=== PATIENT | male | born 1995 | race Hispanic/Latino ===

== ENCOUNTER 2018-12-08 15:39 | Emergency (ER) | payer OTHER ==
[2018-12-08] MEDS ORDERED: FLUORESCEIN SODIUM 0.6 MG/WRAP ONE (17:19)
[2018-12-08] MEDS ORDERED: TETRACAINE HCL 0.5% 2ML OPTH ONE (17:26)
[2018-12-08] MEDS ORDERED: VALACYCLOVIR 500 MG TAB ONE (17:27)
--- NOTE | 2018-12-08 17:30 | EDPHYS ---
Physician Documentation [facility] Name: J Carlos Mejias Jr Age: 23 yrs Sex: Male : 1995 Arrival Date: 12/08/2018 Time: 15:43 Bed 19 Private MD: None, None ED Physician Jaspreet Hirsch HPI: 12/08 16:56 This 23 yrs old Male presents to ER via Ambulatory with complaints of Facial jmm Swelling. 16:56 The patient's rash thought to be caused by an unknown cause. The rash is located on the jmm right cheek. Onset: The symptoms/episode began/occurred today. Associated signs and symptoms: Pertinent positives: itching, Pertinent negatives: fever, Pain. The patient has experienced a previous episode. This is a 23 year old male with no chronic medical conditions that presents to the ED with a rash to his right cheek. Patient denies pain. Denies changes in vision or ocular pain. Historical: - Allergies: 15:51 No Known Allergies; sv - PMHx: 15:51 None; sv - PSHx: 15:51 None; sv - Immunization history:: Adult Immunizations up to date. - Social history:: Smoking status: Patient uses tobacco products, smokes one-half pack cigarettes per day. - Ebola Screening: : No symptoms or risks identified at this time. ROS: 16:56 Constitutional: Negative for fever, chills, and weight loss, Eyes: Negative for injury, jmm pain, redness, and discharge, Cardiovascular: Negative for chest pain, palpitations, and edema, Respiratory: Negative for shortness of breath, cough, wheezing, and pleuritic chest pain. 16:56 Skin: Positive for rash. 16:56 All other systems are negative. Exam: 16:56 Eyes: EOMI, no conjunctival erythema appreciated ENT: Moist Mucus Membranes Neck: jmm Trachea midline, Supple Chest/axilla: Normal chest wall appearance and motion. Cardiovascular: Regular rate and rhythm. No edema appreciated Respiratory: Normal respirations, no respiratory distress appreciated Abdomen/GI: Non distended, soft Back: Normal ROM 16:56 Constitutional: The patient appears in no acute distress, alert, awake. 16:56 Head/face: vesicular rash noted to the right cheek below the right lower eyelid. No surrounding erythema is appreciated. . 16:56 Skin: vesicular rash noted to the right cheek. 16:56 Neuro: Orientation: is normal, Mentation: is normal, Memory: is normal, Gait: is steady. 16:56 Psych: Behavior/mood is pleasant, cooperative. Vital Signs: 15:51 BP 157 / 82; Pulse 81; Resp 16; Temp 98.5; Pulse Ox 98% ; Weight 90.72 kg; Height 5 ft. sv 5 in. (165.10 cm); Pain 5/10; 15:51 Body Mass Index 33.28 (90.72 kg, 165.10 cm) sv MDM: 16:56 Patient medically screened. [facility] 17:27 Data reviewed: vital signs, nurses notes. Counseling: I had a detailed discussion with [facility] the patient and/or guardian regarding: the historical points, exam findings, and any diagnostic results supporting the discharge/admit diagnosis, the need for outpatient follow up, to return to the emergency department if symptoms worsen or persist or if there are any questions or concerns that arise at home. ED course: Patient was initially administered Valtrex for concerns for herpetic infection. Patient will be prescribed antiviral eye drops due to location of rash and advised to closely follow up with ophthalmology. Patient given strict return precautions for pain or changes in the vision. Patient understood and agrees with the plan of care. . 12/08 17:02 Order name: Eye Tray; Complete Time: 17:14 [facility] 12/08 17:02 Order name: Fluoresene Opth strip; Complete Time: 17:14 [facility] Administered Medications: 17:21 Drug: Valtrex 1000 mg Route: PO; em 17:39 Follow up: Response: No adverse reaction em 17:24 Not Given (Physician Discretion): Tetracaine Drops 0.5 % 1 drops Ophthalmic once em Disposition: 17:48 Co-signature as Attending Physician, Jaspreet Hirsch MD. rn Disposition: 12/08/18 17:29 Discharged to Home. Impression: Herpesviral [herpes simplex] infections. - Condition is Stable. - Discharge Instructions: Herpes Keratitis. - Prescriptions for Viroptic 1 % Ophthalmic drops - instill 1 drop by OPHTHALMIC route every 4 hours for a minimum daily dosage of 5 drops following re-epithelialization for an additional 7 days; 1 bottle. Valtrex 1 g Oral Tablet - take 1 tablet by ORAL route every 8 hours for 7 days; 24 tablet. - Medication Reconciliation Form, Thank You Letter, Antibiotic Education, Prescription Opioid Use form. - Follow up: Mendez Brady MD; When: As needed; Reason: Recheck today's complaints, Continuance of care, Re-evaluation by your physician. Follow up: Delfin Brady MD; When: As needed; Reason: Recheck today's complaints, Continuance of care, Re-evaluation by your physician. Follow up: Elida Lindsey MD; When: 2 - 3 days; Reason: Recheck today's complaints, Continuance of care, Re-evaluation by your physician. Signatures: Ama Shaffer, RN RN Ángel De La Garza PA PA [facility] Osmar Reyez, ROLLING MACHINE OPERATOR AUTOMATIC ROLLING MACHINE OPERATOR AUTOMATIC em Jaspreet Hirsch MD MD rn stars: (The following items were deleted from the chart) 17:43 17:29 12/08/2018 17:29 Discharged to Home. Impression: Herpesviral [herpes simplex] em infections. Condition is Stable. Forms are Medication Reconciliation Form, Thank You Letter, Antibiotic Education, Prescription Opioid Use. Follow up: Mendez Brady; When: As needed; Reason: Recheck today's complaints, Continuance of care, Re-evaluation by your physician. Follow up: Delfin Brady; When: As needed; Reason: Recheck today's complaints, Continuance of care, Re-evaluation by your physician. Follow up: Elida Lindsey; When: 2 - 3 days; Reason: Recheck today's complaints, Continuance of care, Re-evaluation by your physician. [facility]
--- NOTE | 2018-12-08 17:30 | ER ---
Nurse's Notes [facility] Name: J Carlos Mejias Jr Age: 23 yrs Sex: Male : 1995 Arrival Date: 12/08/2018 Time: 15:43 Bed 19 Private MD: None, None Diagnosis: Herpesviral [herpes simplex] infections Presentation: 12/08 15:50 Presenting complaint: Patient states: right side facial swelling x 1 day. Transition of sv care: patient was not received from another setting of care. Onset of symptoms was December 07, 2018. Care prior to arrival: None. 15:50 Method Of Arrival: Ambulatory sv 15:50 Acuity: ESTRELLA 3 sv Triage Assessment: 15:50 General: Appears in no apparent distress. uncomfortable, Behavior is calm, cooperative, sv appropriate for age. Pain: Complains of pain in face Pain currently is 5 out of 10 on a pain scale. Neuro: Level of Consciousness is awake, alert, obeys commands, Oriented to person, place, time, situation, Moves all extremities. Full function Gait is steady, Speech is normal. Respiratory: Airway is patent Respiratory effort is even, unlabored, Respiratory pattern is regular, symmetrical. Derm:. Musculoskeletal: Swelling present in right mandaeism, right eye, right zygomatic area and right cheek. Historical: - Allergies: 15:51 No Known Allergies; sv - PMHx: 15:51 None; sv - PSHx: 15:51 None; sv - Immunization history:: Adult Immunizations up to date. - Social history:: Smoking status: Patient uses tobacco products, smokes one-half pack cigarettes per day. - Ebola Screening: : No symptoms or risks identified at this time. Screenin:05 Abuse screen: Denies threats or abuse. Nutritional screening: No deficits noted. em Tuberculosis screening: No symptoms or risk factors identified. Fall Risk None identified. Assessment: 17:05 General: Appears in no apparent distress. comfortable, Behavior is calm, cooperative, em Denies fever. Pain: Denies pain. Neuro: Level of Consciousness is awake, alert, obeys commands, Oriented to person, place, time, situation. Cardiovascular: Capillary refill < 3 seconds Patient's skin is warm and dry. Respiratory: Airway is patent Respiratory effort is even, unlabored, Respiratory pattern is regular, symmetrical. EENT: Sclera/Cornea are clear in right eye Denies blurred vision photophobia. Derm: Skin is intact, Skin is pink, warm \T\ dry. Rash noted that is itchy, papular, raised, on right cheek. Vital Signs: 15:51 BP 157 / 82; Pulse 81; Resp 16; Temp 98.5; Pulse Ox 98% ; Weight 90.72 kg; Height 5 ft. sv 5 in. (165.10 cm); Pain 5/10; 15:51 Body Mass Index 33.28 (90.72 kg, 165.10 cm) sv ED Course: 15:43 Patient arrived in ED. mr 15:44 None, None is Private Physician. mr 15:51 Triage completed. sv 15:51 Arm band placed on Patient placed in waiting room, Patient notified of wait time. sv 16:32 Osmar Reyez LVN is Primary Nurse. em 16:33 Ángel De La Garza PA is PHCP. [facility] 16:33 Jaspreet Hirsch MD is Attending Physician. [facility] 17:05 Patient has correct armband on for positive identification. Bed in low position. Call em light in reach. 17:29 Mendez Brady MD is Referral Physician. [facility] 17:29 Delfin Brady MD is Referral Physician. [facility] 17:29 Elida Lindsey MD is Referral Physician. [facility] 17:43 No provider procedures requiring assistance completed. Patient did not have IV access em during this emergency room visit. Administered Medications: 17:21 Drug: Valtrex 1000 mg Route: PO; em 17:39 Follow up: Response: No adverse reaction em 17:24 Not Given (Physician Discretion): Tetracaine Drops 0.5 % 1 drops Ophthalmic once em Outcome: 17:29 Discharge ordered by . [facility] 17:43 Discharged to home ambulatory. em 17:43 Condition: good 17:43 Discharge instructions given to patient, Instructed on discharge instructions, follow up and referral plans. medication usage, Demonstrated understanding of instructions, follow-up care, medications, Prescriptions given X 2. 17:43 Patient left the ED. em Signatures: Ama Shaffer RN RN Ángel De La Garza PA PA jmm Rivera, Mary mr Osmar Reyez LVN LVN em
== END 2018-12-08 17:43 | disposition home or self-care (01) ==
LOC: ER 15:39
DX: B00.9 Herpesviral infection, unspecified (principal); F17.210 Nicotine dependence, cigarettes, uncomplicated